=== PATIENT | female | born 1975 | race Caucasian/White ===

== ENCOUNTER → 2019-12-21 | Outpatient (CLI) | payer BC, OTHER ==
--- NOTE | 2019-12-22 12:16 | RAD ---
EXAMINATION: BREAST BILATERAL, MAMMO HARPREET DIAG BILAT History: Left breast lump Comparison: None. This is the baseline. Technique: Bilateral digital diagnostic mammogram views were obtained. CAD was utilized. 3-D tomosynthesis images were acquired. Findings: Breast Tissue Density B : There are scattered areas of fibroglandular density. At the site of marker placement, there is a spiculated mass at the left upper outer breast approximately 5.5 cm from the nipple. This measures approximately 1.5 cm not including the spiculations. There is a mass which is ovoid involving the left central breast 5.5 cm from the nipple in the retroareolar region. It measures 0.9 cm diameter. At the right upper outer breast anteriorly 2.5 cm deep from the nipple, there is a 0.6 cm diameter mass. Multiple small masses involving the left retroareolar region are suggested as well. Ultrasound examination of the right breast 10:00 region 3 cm from the nipple demonstrates a 0.4 cm x 0.6 cm x 0.3 cm tall mildly lobulated hypoechoic structure. No flow within. Mildly irregular lobulation is suggested. Right axilla is unremarkable with no suspicious lung. Left breast 2:00 region 8 cm from the nipple, there is a 1.6 cm tall by 1.2 cm x 1.2 cm irregularly lobulated hypoechoic mass. At the 6:00 region 2 cm from nipple, there is a hypoechoic well-circumscribed mass measuring 0.7 cm x 0.6 x 0.12. It is relatively smoothly marginated. No flow within it. No suspicious left axillary lymph nodes. IMPRESSION: Left upper outer breast with a mass, suspicious for malignancy. Biopsy recommended by ultrasound guidance. Smaller left breast mass which is well marginated likely represents a fibroadenoma. Six-month follow-up of the small mass by ultrasound recommended. Right upper-outer breast mass which has moderate irregular margins are of concern and biopsy recommended ultrasound guidance. BI-RADS Category 5: Highly suggestive of malignancy. Results and need for biopsy were discussed with the patient at the time of her visit. The referring clinician's office was contacted on 12/22/2019 12:13 PM regarding the results. The images were reviewed with computer aided detection. Patient information is entered into the reminder system with a target due date for the next screening mammogram. Mammography is the most sensitive method for finding small breast cancers, but it does not detect them all and is not a substitute for careful clinical examination. A negative mammogram does not negate a clinically suspicious finding and should not result in delay in biopsying a clinically suspicious abnormality. "Our facility is accredited by the [employer] Mammography [employer]." Electronically signed by: Joel Mccracken MD (12/22/2019 12:14 PM) [id number]
== END ==
LOC: MAMMO 12:12
PROVIDERS: ATTEND Obstetrics & Gynecology
DX: N64.4 Mastodynia (principal); N63.21 Unspecified lump in the left breast, upper outer quadrant; N63.11 Unspecified lump in the right breast, upper outer quadrant
CPT/HCPCS: 76641; 77066; G0279; 77062